=== PATIENT | male | born 1950 | race Caucasian/White ===

== ENCOUNTER 2021-06-23 13:31 | Outpatient (CLI) | payer OTHER, SELFPAY ==
--- NOTE | ~2021-06-23 | US_ITS ---
EXAMINATION: US renal BI EXAM DATE: 06/23/2021 14:58 INDICATION: Stage IV kidney disease, include PVR. TECHNIQUE: Multiple grayscale and Doppler images of the kidneys were obtained (by a technologist who performed the scan) and subsequently reviewed. There is no prior study for comparison. FINDINGS: Right kidney: There is normal contour and increased renal cortical echogenicity. It measures 12.4 x 6.9 x 7.0 centimeters. Several anechoic lesions consistent with cysts up to 2 cm. There is no hydro nephrosis. Left kidney: There is normal contour and increased renal cortical echogenicity. It measures 11.7 x 6 .7 x 7.4 centimeters. Several anechoic lesions consistent with cysts, up to 4 cm. There is no hydro nephrosis. Bladder unremarkable. Prevoid bladder volume was 274 mL, postvoid residual of 12 mL. Bilateral urete ral jets were visualized IMPRESSION: 1. Echogenic renal cortices, medical renal disease. Renal cysts. 2. Low postvoid residual 12 mL. Reviewed, dictated and finalized at location B.
== END 2021-06-23 13:32 | disposition home or self-care (01) ==
LOC: ANHIMG 13:36
PROVIDERS: PCP Internal Medicine; Visit Provider Internal Medicine Nephrology
DX: N18.4 Chronic kidney disease, stage 4 (severe) (principal); R80.1 Persistent proteinuria, unspecified; E21.1 Secondary hyperparathyroidism, not elsewhere classified; I10 Essential (primary) hypertension; Z72.0 Tobacco use; J42 Unspecified chronic bronchitis
CPT/HCPCS: 76775

== ENCOUNTER 2021-10-19 14:12 | Outpatient (CLI) | payer OTHER, SELFPAY ==
--- NOTE | ~2021-10-19 | US_ITS ---
US art doppler w press LE BI INDICATION: Bilateral leg pain TECHNIQUE: Segmental pressures and plethysmographic and Doppler waveforms of the brachial and lower e xtremity arteries were obtained. COMPARISON: None. FINDINGS: Right and left brachial artery pressures of 150 to mm Hg and 150 mm Hg, respectively, are concordant (normal difference <= 30 mmHg). There is biphasic flow in the lower extremity arteries bilaterally. The right ankle-brachial index (POPPY) is 1.17 (normal >= 0.9-1.0). The right great toe-brachial index (TBI) is 0.8 (normal >= 0.60). The left POPPY is 1.18. The left TBI is 0.7. IMPRESSION: 1. Normal bilateral ankle and toe brachial indices. Reviewed, dictated and finalized at location A.
== END 2021-10-19 14:13 | disposition home or self-care (01) ==
PROVIDERS: PCP Internal Medicine; Visit Provider Internal Medicine
DX: M79.604 Pain in right leg (principal)
CPT/HCPCS: 93923